=== PATIENT | male | born 1970 | race Caucasian/White ===

== ENCOUNTER 2017-06-23 19:49 | Observation (INO) | payer OTHER ==
--- NOTE | 2017-06-23 20:04 | CPEKG ---
Heart Rate: 88 RR Interval: 682 P-R Interval: 164 QRSD Interval: 84 QT Interval: 352 QTC Interval: 426 P Faunsdale: 61 QRS Faunsdale: 31 T Wave Faunsdale: 50 EKG Severity - NORMAL ECG - EKG Impression: SINUS RHYTHM Electronically Signed By: Phong Smith 23-Jun-2017 20:50:14
[2017-06-23] MEDS ORDERED: NS 500 ML IV ONE (20:41)
--- NOTE | 2017-06-23 20:47 | EDPHY ---
H & P Stated Complaint: CP Time Seen by Provider: 06/23/17 20:30 HPI/ROS: CHIEF COMPLAINT: Chest pain HISTORY OF PRESENT ILLNESS: Patient is a 46-year-old man who comes to the emergency department complaining of chest pain radiating through to his back. He has a history of anxiety. He began having chest pain/pressure while walking this morning around 8:00 a.m.. He went to [facility] and had 2-troponins and 2- EKGs and a negative x-ray and was released. He Continued to have mild chest pain/pressure. Mild shortness of breath. No cough. No fever. Then around 6: 00 p.m. he had sudden severe midsternal chest pain that radiated through to his back. He took a GI cocktail at home without improvement. He then went to the drugstore and took 3 doses of nitroglycerin and his symptoms completely resolved. His then brought him here to the emergency department. REVIEW OF SYSTEMS: Constitutional: denies: chills, fever, recent illness, recent injury EENTM: denies: blurred vision, double vision, nose congestion Respiratory: denies: cough, shortness of breath Cardiac: See HPI denies: irregular heart rate, lightheadedness, palpitations Gastrointestinal/Abdominal: denies: abdominal pain, diarrhea, nausea, vomiting, blood streaked stools Genitourinary: denies: dysuria, frequency, hematuria, pain Musculoskeletal: denies: joint pain, muscle pain Skin: denies: lesions, rash, jaundice, bruising Neurological: denies: headache, numbness, paresthesia, tingling, dizziness, weakness Hematologic/Lymphatic: denies: blood clots, easy bleeding, easy bruising Immunologic/allergic: denies: HIV/AIDS, transplant EXAM: GENERAL: Well-appearing, well-nourished and in no acute distress. HEAD: Atraumatic, normocephalic. EYES: Pupils equal round and reactive to light, extraocular movements intact, sclera anicteric, conjunctiva are normal. ENT: TMs normal, nares patent, oropharynx clear without exudates. Moist mucous membranes. NECK: Normal range of motion, supple without lymphadenopathy or JVD. LUNGS: Breath sounds clear to auscultation bilaterally and equal. No wheezes rales or rhonchi. HEART: Regular rate and rhythm without murmurs, rubs or gallops. ABDOMEN: Soft, nontender, normoactive bowel sounds. No guarding, no rebound. No masses appreciated. BACK: No CVA tenderness, no spinal tenderness, step-offs or deformities EXTREMITIES: Normal range of motion, no pitting or edema. No clubbing or cyanosis. NEUROLOGICAL: Cranial nerves II through XII grossly intact. Normal speech, normal gait. 5/5 strength, normal movement in all extremities, normal sensation PSYCH: Normal mood, normal affect. SKIN: Warm, dry, normal turgor, no visible rashes or lesions. Source: Patient Exam Limitations: No limitations - Personal History Current Tetanus/Diphtheria Vaccine: Yes Current Tetanus Diphtheria and Acellular Pertussis (TDAP): Yes - Medical/Surgical History Hx Asthma: No Hx Chronic Respiratory Disease: No Hx Diabetes: No Hx Cardiac Disease: No Hx Renal Disease: No Hx Cirrhosis: No Hx Alcoholism: No Hx HIV/AIDS: No Hx Splenectomy or Spleen Trauma: No Other PMH: hypothyroid, depreppsion - Family History Significant Family History: No pertinent family hx - Social History Smoking Status: Heavy smoker Alcohol Use: Sober Drug Use: None Constitutional: Initial Vital Signs Temperature (C) 37.2 C 06/23/17 20:01 Heart Rate 89 06/23/17 20:01 Respiratory Rate 16 06/23/17 20:01 Blood Pressure 114/70 06/23/17 20:01 O2 Sat (%) 96 06/23/17 20:01 O2 Delivery Mode Room Air Allergies/Adverse Reactions: Penicillins Allergy (Verified 06/23/17 20:06) Home Medications: Medication Instructions Recorded ARIPiprazole [Abilify 10 mg (*)] 10 mg PO DAILY 06/24/17 Acetaminophen [Tylenol 325mg (*)] 650 mg PO Q4HRS PRN tab 06/24/17 Calcium Carbonate [Tums 500MG (*)] 500 mg PO TID PRN #90 tab.chew 06/24/17 Cholecalciferol Vit D3 [Vitamin D3 1,000 units PO DAILY 06/24/17 (*)] Cyanocobalamin [Vitamin B12 (*)] 1,000 mcg PO DAILY 06/24/17 Herbals/Supplements -Info Only 1 ea PO DAILY 06/24/17 Levothyroxine [Synthroid 175 mcg 175 mcg PO DAILY06 06/24/17 (*)] Melatonin [Melatonin 3 MG (*)] 3 mg PO HS 06/24/17 [place]-3 Fatty Acids [Fish Oil 1000 1,000 mg PO DAILY 06/24/17 mg (*)] Pantoprazole Sodium [Protonix 40mg 40 mg PO DAILY #30 tab 06/24/17 (*)] QUEtiapine FUMARATE [Seroquel 50 150 mg PO HS 06/24/17 mg (*)] lamoTRIgine [LamICTAL 100 MG (*)] 200 mg PO DAILY 06/24/17 Medical Decision Making - Diagnostics EKG Interpretation: EKG obtained and was read and documented in trace view. Please see trace view for full reading and report. ED Course/Re-evaluation: 10:15 p.m. we discussed the test results with the patient. He is relieved. He is remains chest pain free. We discuss disposition. He will stay overnight for cardiac testing. 10:50 p.m. I discussed the case with Dr. Cordero who agrees with admission. Differential Diagnosis: Partial list of the Differential diagnosis considered include but were not limited to; acute coronary disease, angina, GERD, PE, pneumonia and although unlikely based on the history and physical exam, I also considered pneumothorax , dissection, biliary disease. - Data Points Laboratory Results: Laboratory Results 06/23/17 20:12 06/23/17 20:12 Medications Given: Discontinued Medications Aripiprazole (Abilify) 10 mg PO DAILY [facility] Stop: 12/21/17 08:59 Last Admin: 06/24/17 08:29 Dose: 10 mg Sodium Chloride (Ns) 500 mls @ 1,000 mls/hr IV EDNOW ONE PRN Reason: Protocol Stop: 06/23/17 21:10 Last Admin: 06/23/17 23:49 Dose: Not Given Lamotrigine (Lamictal) 200 mg PO DAILY [facility] Stop: 12/21/17 08:59 Last Admin: 06/24/17 08:29 Dose: 200 mg Levothyroxine Sodium (Synthroid) 175 mcg PO DAILY AT 6AM [facility] Stop: 12/21/17 05:59 Last Admin: 06/24/17 05:45 Dose: 175 mcg Pantoprazole Sodium (Protonix) 40 mg PO DAILY [facility] Stop: 12/21/17 13:14 Last Admin: 06/24/17 13:45 Dose: 40 mg Quetiapine Fumarate (Seroquel) 300 mg PO [facility] Stop: 12/21/17 00:14 Last Admin: 06/24/17 01:06 Dose: Not Given Quetiapine Fumarate (Seroquel) 50 mg PO [facility] Stop: 12/21/17 00:14 Last Admin: 06/24/17 00:49 Dose: 50 mg Quetiapine Fumarate (Seroquel) 100 mg PO [facility] Stop: 12/21/17 00:14 Last Admin: 06/24/17 00:49 Dose: 100 mg Departure - Departure Disposition: [facility] Inpatient Acute Clinical Impression: Chest pain Qualifiers: Chest pain type: unspecified Qualified Code(s): R07.9 - Chest pain, unspecified Condition: Good
[2017-06-23 20:51] LABS: % IMMATURE GRANULYOCYTES 0.1 % (0.0-1.1); ABSOLUTE IMMATURE GRANULOCYTES 0.01 10^3/uL (0.00-0.10); ADD DIFF? NO; ADD MORPH? NO; ADD SCAN? NO; ATYPICAL LYMPHOCYTE FLAG 10 (0-99); FRAGMENT RBC FLAG 0 (0-99); HEMATOCRIT 48.1 % (40.0-51.0); HEMOGLOBIN 16.9 g/dL (13.7-17.5); LEFT SHIFT FLG 0 (0-99); LIPEMIA HEMOLYSIS FLAG 90 (0-99); MEAN CELL HEMOGLOBIN 29.9 pg (27.9-34.1); MEAN CELL HEMOGLOBIN CONCENTR. 35.1 g/dL (32.4-36.7); MEAN PLATELET VOLUME 11.6 fL (8.7-11.7); PLATELET CLUMPS FLAG 0 (0-99); PLATELET COUNT 226 10^3/uL (150-400); RED BLOOD CELL COUNT 5.66 10^6/uL (4.40-6.38); RED CELL DISTRIBUTION WIDTH 12.1 % (11.5-15.2)
[2017-06-23 20:57] LABS: ALANINE AMINOTRANSFERASE 31 IU/L (21-72); ALBUMIN 4.1 g/dL (3.5-5.0); ALKALINE PHOSPHATASE 56 IU/L (38-126); ANION GAP 12 mEq/L (8-16); ASPARTATE AMINOTRANSFERASE 20 IU/L (17-59); BILIRUBIN,TOTAL 0.2 mg/dL (0.1-1.4); BILIRUBIN-CONJUGATED 0.1 mg/dL (0.0-0.5); BILIRUBIN-UNCONJUGATED 0.1 mg/dL (0.0-1.1); CALCIUM 9.7 mg/dL (8.5-10.4); CARBON DIOXIDE 24 mEq/l (22-31); CHLORIDE 103 mEq/L (97-110); CREATININE 1.2 mg/dL (0.7-1.3); GLOMERULAR FILTRATION RATE > 60; GLUCOSE 68 mg/dL (70-100); POTASSIUM 4.2 mEq/L (3.5-5.2); SODIUM 139 mEq/L (134-144); TOTAL PROTEIN 6.7 g/dL (6.3-8.2)
[2017-06-23 21:02] LABS: INR 0.96 (0.83-1.16); PROTIME(PATIENT) 12.7 SEC (12.0-15.0)
[2017-06-23 21:03] LABS: APTT 27.8 SEC (23.0-38.0)
[2017-06-23 21:09] LABS: TROPONIN I < 0.012 ng/mL (0.000-0.034)
[2017-06-23] MEDS ORDERED: ACETAMINOPHEN 325 MG TAB PO PRN (22:47)
[2017-06-23] MEDS ORDERED: ONDANSETRON 4 MG/2 ML VIAL IVP PRN (22:47)
[2017-06-23] MEDS ORDERED: NITROGLYCERIN 0.4 MG BTL SL PRN (22:51)
[2017-06-24] MEDS ORDERED: QUEtiapine FUMARATE 300 MG TAB PO SCH (00:15)
[2017-06-24] MEDS ORDERED: QUEtiapine FUMARATE 50 MG TAB PO SCH (00:15)
[2017-06-24] MEDS ORDERED: QUEtiapine FUMARATE 100 MG TAB PO SCH (00:36)
--- NOTE | 2017-06-24 02:34 | PDGENHP ---
History and Physical - Chief Complaint Chest pressure - History of Present Illness Source - Patient provides history and appears reliable. EMR reviewed and case discussed with ED provider. HPI - Pleasant 46 yo M with pmhx significant for bipolar disorder, hypothyroidism who presents to the ED today with complaints of persistent chest pressure. Patient repors pain started 0800 this AM while he was walking. He originally presented to [facility] ED for evaluation with serial troponin and ekg. This was found to be negative and patient discharged home. Patient states his chest pressure never entirely resolved. He decribes substernal chest pressure with radiation to left chest around to his back. Patient also endorses associated SOB. He denies any calf swelling, no recent travel. + intermittent palpitations. no syncope/presyncope. denies diaphoresis, nausea or vomiting. Patient without any recent falls/injuries/trauma. Patient tries to stay active and walks approximately 4 miles weekly. After his ED visit patient went home and took a GI cocktail without improvement in symptoms. Patient sx worsened approximately 1800 and he took SL Nitroglycerin x 3 doses his gave him with relief of his chest pain. History Information - Allergies/Home Medication List Allergies/Adverse Reactions: Penicillins Allergy (Verified 06/23/17 20:06) I have personally reviewed and updated: family history, medical history, social history, surgical history - Past Medical History Additional medical history: bipolar disorder with depression. hypothyroidism - Surgical History Reports: appendectomy Additional surgical history: bilateral knee arthroscopy. vasectomy - Family History Negative for: diabetes type II, CAD, hypertension, myocardial infarction Additional family history: GM - osteoporosis - Social History Smoking Status: Former smoker Tobacco Use: Cigar (3 / yr) Alcohol Use: None Drug Use: None Review of Systems Review of Systems: ROS: 10pt was reviewed & negative except for what was stated in HPI & below Constitutional: Denies: chills, fever, weakness EENMT: Denies: blurred vision, eye pain, nose congestion, sore throat Cardiac: Reports: chest pain, palpitations. Denies: edema, lightheadedness, syncope Respiratory: Reports: shortness of breath. Denies: cough Gastrointestinal: Denies: vomitting, blood streaked stools, diarrhea, nausea Genitourinary: Denies: dysuria, hematuria Muscolosketal: Reports: back pain, neck pain. Denies: muscle pain Skin: Reports: no symptoms. Denies: rash Neurological: Reports: no symptoms, other (occasionally pt reports arms fall asleep dependent on sleeping position. otherwise nothing focal reported. ) Physical Exam Physical Exam: Selected Entries 06/23/17 06/23/17 20:01 23:49 Blood Pressure Automatic Automatic Method Heart Rate 89 86 Respiratory 16 16 Rate O2 Sat (%) 96 95 Temperature (C) 37.2 C 37.0 C Blood Pressure 114/70 128/71 H Mean Arterial 84 90 Pressure (MAP) O2 Delivery Room Air Room Air Mode Temperature Oral Oral Source Temp Pulse Resp BP Pulse Ox 36.6 C 80 16 131/81 H 96 06/24/17 00:14 06/24/17 00:14 06/24/17 00:14 06/24/17 00:14 06/24/17 00:14 Constitutional: no apparent distress, not in pain Eyes: PERRL (pupils with slightly decreased reactivity to light bilaterally but symmetric. ), anicteric sclera, EOMI, No scleral injection Ears, Nose, Mouth, Throat: moist mucous membranes, other (no nasal discharge. no oropharyngeal erythema/exudates. ) Cardiovascular: regular rate and rhythym, no murmur, rub, or gallop, pulses symmetric bilaterally, No edema Peripheral Pulses: 2+: dorsalis-pedis (R), dorsalis-pedis (L) Respiratory: no respiratory distress, no rales or rhonchi, clear to auscultation Gastrointestinal: normoactive bowel sounds, soft, non-tender abdomen, no palpable masses Genitourinary: no bladder tenderness, No hernandez in urethra Skin: warm, normal color, no rashes or abrasions Musculoskeletal: full muscle strength, no muscle tenderness, normal joint ROM, other (no ttp along spine), No abnormal gait Neurologic: AAOx3, sensation intact bilaterally, CN II-XII Intact (grossy intact ), No weakness, No facial droop Psychiatric: not anxious, thought process linear, No poor insight, No poor judgement, No poor memory Lab Data & Imaging Review 06/23/17 20:12 06/23/17 20:12 WBC 6.72 10^3/uL (3.80-9.50) 06/23/17 20:12 RBC 5.66 10^6/uL (4.40-6.38) 06/23/17 20:12 Hgb 16.9 g/dL (13.7-17.5) 06/23/17 20:12 Hct 48.1 % (40.0-51.0) 06/23/17 20:12 MCV 85.0 fL (81.5-99.8) 06/23/17 20:12 MCH 29.9 pg (27.9-34.1) 06/23/17 20:12 MCHC 35.1 g/dL (32.4-36.7) 06/23/17 20:12 RDW 12.1 % (11.5-15.2) 06/23/17 20:12 Plt Count 226 10^3/uL (150-400) 06/23/17 20:12 MPV 11.6 fL (8.7-11.7) 06/23/17 20:12 Neut % (Auto) 51.2 % (39.3-74.2) 06/23/17 20:12 Lymph % (Auto) 33.6 % (15.0-45.0) 06/23/17 20:12 [place] % (Auto) 11.3 % (4.5-13.0) 06/23/17 20:12 Eos % (Auto) 2.2 % (0.6-7.6) 06/23/17 20:12 Baso % (Auto) 1.6 % (0.3-1.7) 06/23/17 20:12 Nucleat RBC Rel Count 0.0 % (0.0-0.2) 06/23/17 20:12 Absolute Neuts (auto) 3.43 10^3/uL (1.70-6.50) 06/23/17 20:12 Absolute Lymphs (auto) 2.26 10^3/uL (1.00-3.00) 06/23/17 20:12 Absolute Monos (auto) 0.76 10^3/uL (0.30-0.80) 06/23/17 20:12 Absolute Eos (auto) 0.15 10^3/uL (0.03-0.40) 06/23/17 20:12 Absolute Basos (auto) 0.11 10^3/uL (0.02-0.10) H 06/23/17 20:12 Absolute Nucleated RBC 0.00 10^3/uL (0-0.01) 06/23/17 20:12 Immature Gran % 0.1 % (0.0-1.1) 06/23/17 20:12 Immature Gran # 0.01 10^3/uL (0.00-0.10) 06/23/17 20:12 PT 12.7 SEC (12.0-15.0) 06/23/17 20:12 INR 0.96 (0.83-1.16) 06/23/17 20:12 APTT 27.8 SEC (23.0-38.0) 06/23/17 20:12 D-Dimer 0.29 ug/mLFEU (0.00-0.50) 06/23/17 20:12 Sodium 139 mEq/L (134-144) 06/23/17 20:12 Potassium 4.2 mEq/L (3.5-5.2) 06/23/17 20:12 Chloride 103 mEq/L (97-110) 06/23/17 20:12 Carbon Dioxide 24 mEq/l (22-31) 06/23/17 20:12 Anion Gap 12 mEq/L (8-16) 06/23/17 20:12 BUN 12 mg/dL (7-23) 06/23/17 20:12 Creatinine 1.2 mg/dL (0.7-1.3) 06/23/17 20:12 Estimated GFR > 60 06/23/17 20:12 Glucose 68 mg/dL (70-100) L 06/23/17 20:12 Calcium 9.7 mg/dL (8.5-10.4) 06/23/17 20:12 Total Bilirubin 0.2 mg/dL (0.1-1.4) 06/23/17 20:12 Conjugated Bilirubin 0.1 mg/dL (0.0-0.5) 06/23/17 20:12 Unconjugated Bilirubin 0.1 mg/dL (0.0-1.1) 06/23/17 20:12 AST 20 IU/L (17-59) 06/23/17 20:12 ALT 31 IU/L (21-72) 06/23/17 20:12 Alkaline Phosphatase 56 IU/L (38-126) 11/14/17 20:12 Troponin I < 0.012 ng/mL (0.000-0.034) 06/23/17 20:12 Total Protein 6.7 g/dL (6.3-8.2) 06/23/17 20:12 Albumin 4.1 g/dL (3.5-5.0) 06/23/17 20:12 Lipase 109 IU/L (23-300) 06/23/17 20:12 TSH 0.142 uIU/mL (0.465-4.680) L 06/23/17 20:12 Free T4 1.08 ng/dL (0.59-2.19) 06/23/17 20:12 Imaging Review: Chest, PA and Lateral History: Chest pain. Comparison: None Findings: Lungs clear. Heart normal. No pneumothorax or pleural effusion. Moderate elevation of the right hemidiaphragm is of unknown chronicity. It could possibly represent evidence of a congenital eventration. There are minimal compressions of T8, T10 and T11 of unknown age. EKG leads overlie the chest. Impression: 1. Elevated right hemidiaphragm and 3 low thoracic compressions of unknown chronicity. 2. Otherwise negative. Chest X-Ray results: no infiltrate, other (lower thoracic spine compression fractures) Visualized and Interpreted imaging results: Yes Visualized and Interpreted EKG results: Yes EKG Interpretation: Positive for: normal sinsus rhythm EKG additional interpertation: NSR 80s. no acute ST changes. QTc 426. Assessment & Plan Assessment: 1. Chest pain (Acute) - patient with multiple troponin and ekg today without any acute changes. patient chest pain resolved after 3 nitroglycerin. ddx including less likely ACS vs. PE (neg ddimer and low risk hx) vs. PNA (neg cxr) vs. musculoskeletal etiology (vertebral fractures or strain) vs. GI (no improvement after GI cocktail). repeat trop/ekg in AM or sooner for recurrence of pain. treadmill stress testing in AM if r/o. 2. thoracic compression fractures - patient denies any recent trauma/injury and patient otherwise healthy. Will check CT in AM. 3. hypoglycemia - patient denies. given oral supplement. repeat in AM or if sx. chronic medical problems 4. bipolar disorder with depression - resume patient lamictal, abilify and seroquel. 5. hypothyroidism - TSH slightly decreased but T4 normal. continue l-thyroxine 175mcg daily FEN - diet until 1am then npo for stress/ct. electrolyte replacement prn. PPX - SCDs. lovenox. COR - FULL Dispo - admit to observation PCU.
[2017-06-24 05:35] LABS: % IMMATURE GRANULYOCYTES 0.2 % (0.0-1.1); ABSOLUTE IMMATURE GRANULOCYTES 0.01 10^3/uL (0.00-0.10); ADD DIFF? NO; ADD MORPH? NO; ADD SCAN? NO; ATYPICAL LYMPHOCYTE FLAG 10 (0-99); FRAGMENT RBC FLAG 0 (0-99); HEMATOCRIT 47.3 % (40.0-51.0); HEMOGLOBIN 16.6 g/dL (13.7-17.5); LEFT SHIFT FLG 0 (0-99); LIPEMIA HEMOLYSIS FLAG 90 (0-99); MEAN CELL HEMOGLOBIN 29.7 pg (27.9-34.1); MEAN CELL HEMOGLOBIN CONCENTR. 35.1 g/dL (32.4-36.7); MEAN CELL VOLUME 84.6 fL (81.5-99.8); MEAN PLATELET VOLUME 11.2 fL (8.7-11.7); PLATELET CLUMPS FLAG 0 (0-99); PLATELET COUNT 194 10^3/uL (150-400); RED BLOOD CELL COUNT 5.59 10^6/uL (4.40-6.38)
[2017-06-24] MEDS ORDERED: LEVOTHYROXINE 175 MCG TAB PO SCH (06:00)
[2017-06-24] MEDS ORDERED: LEVOTHYROXINE 75 MCG TAB PO SCH (06:00)
[2017-06-24 06:01] LABS: ANION GAP 10 mEq/L (8-16); CALCIUM 9.3 mg/dL (8.5-10.4); CARBON DIOXIDE 25 mEq/l (22-31); CHLORIDE 106 mEq/L (97-110); CREATININE 0.9 mg/dL (0.7-1.3); GLOMERULAR FILTRATION RATE > 60; GLUCOSE 90 mg/dL (70-100); POTASSIUM 3.9 mEq/L (3.5-5.2); SODIUM 141 mEq/L (134-144)
[2017-06-24 06:08] LABS: TROPONIN I < 0.012 ng/mL (0.000-0.034)
[2017-06-24 07:27] VITALS: RESP 18
[2017-06-24] MEDS ORDERED: ARIPiprazole 10 MG TAB PO SCH (09:00)
[2017-06-24] MEDS ORDERED: lamoTRIgine 100 MG TAB PO SCH ×2 (09:00)
--- NOTE | 2017-06-24 10:13 | PDCARST ---
CAR Stress Test Results Type of Stress Test: Nuclear TM stress test Indication: cp Description of Procedure: After informed consent was obtained, pt was exercised according to Geoff Protocol. Monitoring was performed with standard stress pump tester electrode placement. Vital signs were monitored according to protocol throughout the procedure. STRESS EKG AND HEMODYNAMIC DATA. Exercise time: min. This is equivalent to: 10 METS. Resting heart rate: 105 bpm. Resting blood pressure: 110/82 mmHg. Resting O2 saturation: 96 %. Peak heart rate: 160 bpm. This is 90% of age predicted maximum heart rate response. Peak blood pressure: 168/74 mmHg. Exercise O2: 98 %. Arrhythmias: Rare PVC in rest and recovery. Reason for termination: The test was stopped due to target heart rate achieved. Symptoms: The patient experienced no typical symptoms of angina during stress or recovery. STRESS TEST ANALYSIS. Baseline ECG: SR with rSr'. Stress ECG: sinus tach. No exercise induced ischemic ECG changes. Rhythm: rare PVC arrhythmias noted during pre-exercise and recovery. Blood pressure: noram blood pressure response to exercise. Exercise tolerance: The patient has normal exercise tolerance adjusted for age and gender. Symptoms : No exercise induced symptoms. Impression: The Agrawal Treadmill Score is 9 consistent with low cardiovascular risk (<1% annual mortality). Conclusion: Await nuclear images.
[2017-06-24 11:13] VITALS: BP 125/74; PULSE 104; TEMP 97.9; O2SAT 96
[2017-06-24] MEDS ORDERED: MAG HYDROX/AL HYDROX/SIMETH 30 ML UDCUP PO PRN (13:12)
[2017-06-24] MEDS ORDERED: CALCIUM CARBONATE 500 MG CHEWABLE TAB PO PRN (13:13)
[2017-06-24] MEDS ORDERED: PANTOPRAZOLE SODIUM 40 MG TAB PO SCH (13:15)
[2017-06-24 14:41] LABS: ALBUMIN 3.5 g/dL (3.5-5.0); BILIRUBIN,TOTAL 0.2 mg/dL (0.1-1.4); BILIRUBIN-CONJUGATED 0.1 mg/dL (0.0-0.5); BILIRUBIN-UNCONJUGATED 0.1 mg/dL (0.0-1.1); TOTAL PROTEIN 6.1 g/dL (6.3-8.2)
--- NOTE | 2017-06-24 16:54 | ASDISCHSUM ---
Discharge Information Plan Status:Home with No Needs Medically Cleared to Leave:06/23/2017 Discharge Date:06/24/2017 04:00 PM CM D/C Disposition: ADT D/C Disposition:Home, Routine, Self-Care Projected Discharge Date:06/24/2017 12:00 AM Transportation at D/C: Discharge Delay Reason: Follow-Up Date:06/24/2017 12:00 AM Discharge Slot: Final Diagnosis: Placement Information Patient Contact Information Contact Name:SARABJIT Relationship: Address:[address] [place] Work Phone: [facility]:[place] Alternate Phone: [facility]/Zip Code:[place] [address] Email: Financial Information Financial Class:HMO and PPO Plans Primary Plan Desc:RITA JAEL PPO Primary Plan Number:[id number] Secondary Plan Desc: Secondary Plan Number: Assessment Information Intervention Information
--- NOTE | 2017-06-24 17:21 | PDDCSUM ---
Discharge Summary Discharge Summary: DISCHARGE SUMMARY FOLLOW-UP ITEMS: Reassess chest pain as outpatient, consider upper endoscopy DATE OF ADMISSION: 06/23/2017 DATE OF DISCHARGE: 06/24/2017 DISCHARGE DIAGNOSES: 1. Acute chest pain 2. Suspected GERD CONSULTATIONS: None PROCEDURES / IMAGING: Nuclear medicine stress test demonstrated no inducible ischemia Thoracic CT demonstrating no compression fractures CHIEF COMPLAINT: Acute chest pain SUBJECTIVE: Chest pain-free at time of discharge PHYSICAL EXAM ON DISCHARGE: Systolic blood pressure is 110-130, heart rate 80, afebrile overnight, satting well on room air, alert awake oriented x3, no apparent distress, pain level 0 10 , lungs clear to auscultation bilaterally LABS ON DISCHARGE: D-dimer negative, troponin negative x2, TSH 0.14, T4 1.1 HOSPITAL COURSE BY PROBLEM: Patient presented with acute chest pain and was ruled out for acute coronary syndrome with normal EKG, negative troponins, ruled out for pulmonary embolism with negative D-dimer, ruled out for obstructive coronary disease with negative nuclear medicine stress test. Most likely etiology of his chest pain is gastroesophageal reflux disease and possible stomach ulcer. His hemoglobin level is normal, as is his MCV, and consequently I recommend outpatient follow- up and management. I recommend the patient initiate a scheduled proton pump inhibitor, as well as as needed times, and that he follow up with his primary care provider and consider a Gastroenterology consultation if his symptoms persist. It should also be noted that the patient's pain was somewhat alleviated by sublingual nitroglycerin, which may indicate that he has an element of esophageal spasm, potentially provoked by acid reflux. DISCHARGE MEDICATIONS: Please see official discharge medication reconciliation sheet in chart , pantoprazole 40 mg daily, Tums, Maalox, ranitidine as needed. DISCHARGE INSTRUCTIONS: Please follow up with primary care provider.
== END 2017-06-24 16:00 | disposition home or self-care (01) ==
LOC: F2W 23:51
PROVIDERS: ADMIT Family Medicine; ATTEND Internal Medicine
DX: R07.9 Chest pain, unspecified (principal)
CPT/HCPCS: 71020; 72128; 78452; 93005; 93017; 99285; A9500; G0378